=== PATIENT | female | born 1970 | race African-American/Black ===

== ENCOUNTER 2016-11-02 12:40 | Emergency (ER) | payer OTHER ==
[~2016-11-02] VITALS: Ht 177.8 cm; Wt 127.0 kg
[~2016-11-02 12:40] MED LIST: AMLODIPINE10 M1 PO; COUMADIN5 M2 PO; DIAZEPAM10 M1 PO; FENTANYL TD; HCTZ PO; KLORCON PO; LISINOPRIL40 MG PO; LOSARTAN POTASS50 MG PO; LOTREL 10 MG-201 CAP PO; LOVASTATIN20 MG PO; METOPROLOL25 MG PO; OXYCODONE/APAP1 TA4 PO; OXYCONTIN10 MG PO; PREMARIN1.25 M1 PO; PRILOSEC20 MG PO; SOMA350 M1 PO; XARELTO20 MG PO; ZESTRIL20 M1 PO
[2016-11-02 12:50] VITALS: BP 154/126
--- NOTE | 2016-11-02 13:27 | NUR ---
pt to bed 8 at this time.
[2016-11-02] MEDS ORDERED: ALBUTEROL 0.083% 2.5 MG/3 ML NEBU INH ONE (13:40)
[2016-11-02] MEDS ORDERED: KETOROLAC 60 MG/2 ML VIAL IM ONE (13:40)
[2016-11-02] MEDS ORDERED: IPRATROPIUM 0.02% 0.5 MG/2.5 ML NEBU INH ONE (13:40)
[2016-11-02] MEDS ORDERED: LIDOCAINE VISCOUS 2% 20 ML UDC PO ONE (13:40)
--- NOTE | 2016-11-02 13:45 | NUR ---
46/M TO ED WITH C/O CHEST PAIN WITH CHEST CONGESTION, COUGH, SORE THROAT X1 WEEK. PAIN 9/10. DENIES SOB. CAP REFILL < 3 SECS. LUNGS CLEAR BILAT. HR EVEN AND REGULAR. AAOX4. VSS. NO SIGNS OF DISTRESS.
[2016-11-02 15:58] VITALS: BP 154/126
--- NOTE | 2016-11-02 15:59 | NUR ---
Patient discharged with v/s stable. Written and verbal after care instructions given and explained. Patient alert, oriented and verbalized understanding of instructions. Ambulatory with steady gait. All questions addressed prior to discharge. ID band removed. Patient advised to follow up with PMD. Rx of CHLORASEPTIC, MOTIN, CORTISPORIN, ZITHROMAX given. Patient educated on indication of medication including possible reaction and side effects. Opportunity to ask questions provided and answered.
== END 2016-11-02 15:59 | disposition home or self-care (01) ==
LOC: MED 12:40
DX: B34.9 Viral infection, unspecified (principal); D68.69 Other thrombophilia; M67.442 Ganglion, left hand; I25.2 Old myocardial infarction; I10 Essential (primary) hypertension; Z86.73 Personal history of transient ischemic attack (TIA), and cerebral infarction without residual deficits; Z88.5 Allergy status to narcotic agent; Z85.43 Personal history of malignant neoplasm of ovary
CPT/HCPCS: 71010; 93971; 94640; 96372; 99284; J1885; J7613; J7644; Q0092